=== PATIENT | female | born 1965 | race Caucasian/White ===

== ENCOUNTER 2023-03-04 08:58 | Outpatient (CLI) | payer BC, SELFPAY ==
[2023-03-04 09:28] LABS: Hematocrit 38.1 % (37.0-47.0); Hemoglobin 12.8 g/dL (12.0-15.0)
== END 2023-03-04 08:59 | disposition home or self-care (01) ==
LOC: ANHSURGERY 09:03
PROVIDERS: PCP Internal Medicine; Visit Provider Student in an Organized Health Care Education/Training Program
DX: N95.0 Postmenopausal bleeding (principal)
CPT/HCPCS: 36415; 85014; 85018

== ENCOUNTER 2023-03-07 01:45 | Day surgery (SDC) | payer BC, SELFPAY ==
[2023-03-01 14:00] VITALS: BMI 21.3
--- NOTE | 2023-03-01 14:13 | PC.NURSE ---
PRE-OP INSTRUCTIONS, PLEASE READ CAREFULLY Report to the Outpatient Waiting Room, entrance under the green pavilion located off [facility], at time _1200_ on date _03/07/23_. Planned Procedure Time: _2PM_. Time changes happen often and if your time is changed the preop area will call you the afternoon before. - You and your visitor will be asked to self-screen and do not enter if you have any COVID symptoms. - A mask is optional within the hospital at this time. Patients may have clear liquids (water, carbonated beverages, clear teas, apple juice) until 3 hours prior to surgery with a maximum of 20 ounces. - No food from midnight until time of surgery - Infants may have breast milk until 4 hours before surgery, formula 6 hours prior to surgery. - Children will be allowed to drink immediately following surgery. If applicable, please bring a bottle or sippy cup to assist with drinking. Juice, water, soda, and popsicles are readily available. For infants on formula, please bring formula the day of surgery. Pacifiers are allowed. Take the following medications with a SIP of water the morning of surgery: _NONE__ DO NOT STOP ANY OF YOUR OTHER PRESCRIPTION MEDICATIONS PRIOR TO SURGERY ?EXCEPT THE FOLLOWING Medications to discontinue per ANESTHESIA - _MULTIVITAMIN/SUPPLEMENTS 3 DAYS PRIOR TO SURGERY, Date to take last dose 03/03/23_ Please no make-up, nail dominican, hairspray, perfume, deodorant, or body powder the day of surgery. No jewelry (including any body piercings) or valuables the day of surgery, leave them at home. Please take a shower or bath the night before, or the morning of, surgery with an antibacterial soap. Wear comfortable, loose fitting clothing. Children are encouraged to wear pajamas. - Jewelry must be removed prior to entering the operating room. Rings and piercings that are not removed may be cut off. - The hospital will not accept responsibility for valuables. - Please leave all valuables, including medications, at home the day of surgery. If you are going home after surgery, a licensed septic pump truck driver must drive you home. - NO public transportation without another adult if you receive anesthesia. - We recommend that an adult stay with you for 24 hours following discharge. - We also recommend that you do not drive, make important decision, drink alcoholic beverages, or take any drugs that were not prescribed by your health care provider for at least 24 hours after your discharge time. For Pediatric surgeries, we recommend two adults accompany the child home. Follow any additional instructions given to you from your surgeon. If you or anyone in your household have experienced Covid symptoms in the past week, please notify your surgeon or the nurse liaison at the phone number below for possible testing. Telephone instructions given to and asked if any additional questions and then verbalized understanding. Patient advised to call surgeon office or pre surgery nurse liaison [phone] if any additional questions.
--- NOTE | 2023-03-07 08:15 | PM.IMHP ---
H&P: HPI History of Present Illness Date/Time: 03/07/23 08:15 Chief Complaint: postmenopausal bleeding Narrative: 57-year-old female who presents for hysteroscopy D&C for postmenopausal bleeding. Patient has had persistent light postmenopausal spotting. Transvaginal ultrasound showed mildly thickened endometrium. Patient currently on hormone replacement therapy. Recommended tissue sampling to rule out malignancy. Review of Systems Cardiovascular: Cardiovascular: Denies chest pain, Denies leg edema, Denies palpitations, Denies dyspnea and Denies dyspnea on exertion Respiratory: Respiratory: Denies cough, Denies dyspnea and Denies dyspnea on exertion Gastrointestinal: Gastrointestinal: Denies abdominal pain, Denies constipation, Denies diarrhea, Denies nausea and Denies vomiting Genitourinary: Genitourinary: Denies hematuria, Denies urinary frequency, Denies dysuria, Denies pelvic pain, Denies urinary incontinence and Denies vaginal discharge Neurologic: Reports system reviewed and no additional complaints, except as documented Psychiatric: Psychiatric: Reports no additional psychiatric complaints Endocrine: Endocrine: Denies palpitations PMFSH Past Medical History Medical History (Updated 02/18/23 @ 09:32 by Veronica Worthington CMA) Screening for breast cancer Vaginal discharge Surgical History Surgical History H/O breast implant (~1997) H/O hemorrhoidectomy (~2000) History of colposcopy (06/15/15) History of gynecological procedure (~2009) 2010 fallion tubes removed and right ovary History of orthopedic surgery right shoulder History of orthopedic surgery left elbow surgery Family History Family History Grandparent Diabetes mellitus maternal grandmother Mother Hypertension Social History Social History (Updated 02/18/23 @ 09:35 by Veronica Worthington CMA) Smoking packs per day: 0.5 Smoking cigarettes per day: 10.0 Years smoked: 20 Smoking pack-years: 10.00 Smoking status: Former smoker Tobacco type: cigarettes Second hand tobacco smoke exposure: No Smoking end date: 07/08/08 Alcohol intake: current Substance use: never Substance use type: does not use Lack of Transportation: No Lack of Food: Never True Current Housing: I Have Housing Concerned About Future Housing: No Difficulty Paying Gas/Electric Bills: No Difficulty Paying for Meds: No Currently Unemployed: No Education: Associate Degree Difficulty w/ Childcare or Family Care: No Living arrangements: other Additional living arrangements comments: LIVES WITH SIGNIFICANT OTHER Occupation/Education: occupation Gender identity (if verbalized by the patient): Female Sexual Orientation (if Verbalized by the Patient): Straight or Heterosexual Spiritual care concerns: No Meds Home Medications and Allergies Home Medications Medication Instructions Recorded Confirmed Type estradiol 0.01% (0.1 mg/gram) 2 g vaginal DAILY 10/18/22 03/01/23 History vaginal cream progesterone micronized 100 mg 300 mg PO QAM 02/18/23 03/01/23 History capsule Fish Oil 1 tab-cap DAILY 03/01/23 03/01/23 History multivitamin 1 tablet PO DAILY 03/01/23 03/01/23 History Allergies Allergy/AdvReac Type Severity Reaction Status Date / Time No Known Allergies Allergy Verified 03/01/23 13:50 Exam Const: General: no acute distress Eyes: EOM: EOMs intact bilaterally Neck: Neck: supple Thyroid: thyroid normal Chest: Breast/axilla inspection: normal inspection of the breasts Breast/axilla palpation: normal palpation of the breasts, normal palpation of the axillae and no axillary lymphadenopathy Resp: Effort & Inspection: normal respiratory effort Auscultation: clear to auscultation bilaterally Cardio: Rate: regular rate Rhythm: regular rhythm GI: Inspection: non-distended GI Palp:
--- NOTE | 2023-03-07 08:17 | WPDHPUPDATE1 ---
History and Physical Update Update Date/Time: 03/07/23 08:17 History and Physical has been reviewed, including an updated exam of the patient. There are NO changes in the patient's condition. Risks, benefits, and alternatives have been discussed and questions answered. Patient agrees to proceed with procedure.
--- NOTE | 2023-03-07 09:09 | WPDANESEPPF ---
Anes - Initial Pre Proc Eval Procedure: Operation Date: 03/07/23 14:00 Proposed Procedures p Hysteroscopy Dilation and Curettage - Fabricio Prince MD Date/Time: 03/07/23 09:09 Surgeon: Fabricio Prince MD Pre Op Diagnosis: postmenopausal bleeding Patient Data Age: 57 Gender: F Height: 1.7 m Weight: 61.81 kg Allergies Allergy/AdvReac Type Severity Reaction Status Date / Time No Known Allergies Allergy Verified 03/07/23 12:04 Home Medications Medication Instructions Recorded Confirmed Type estradiol 0.01% (0.1 mg/gram) 2 g vaginal DAILY 10/18/22 03/07/23 History vaginal cream progesterone micronized 100 mg 300 mg PO QAM 02/18/23 03/07/23 History capsule Fish Oil 1 tab-cap DAILY 03/01/23 03/07/23 History multivitamin 1 tablet PO DAILY 03/01/23 03/07/23 History Patient hx anesthesia problems: none Family hx anesthesia problems: none Results Review: All pre-operative results and documents have been reviewed as part of the pre-operative evaluation. [facility] Past Medical History Medical History (Updated 02/18/23 @ 09:32 by Veronica Worthington CMA) Screening for breast cancer Vaginal discharge Surgical History Surgical History H/O breast implant (~1997) H/O hemorrhoidectomy (~2000) History of colposcopy (06/15/15) History of gynecological procedure (~2009) 2010 fallion tubes removed and right ovary History of orthopedic surgery right shoulder History of orthopedic surgery left elbow surgery Family History Family History Grandparent Diabetes mellitus maternal grandmother Mother Hypertension Social History Social History (Updated 02/18/23 @ 09:35 by Veronica Worthington CMA) Smoking packs per day: 0.5 Smoking cigarettes per day: 10.0 Years smoked: 20 Smoking pack-years: 10.00 Smoking status: Former smoker Tobacco type: cigarettes Second hand tobacco smoke exposure: No Smoking end date: 07/08/08 Alcohol intake: current Substance use: never Substance use type: does not use Lack of Transportation: No Lack of Food: Never True Current Housing: I Have Housing Concerned About Future Housing: No Difficulty Paying Gas/Electric Bills: No Difficulty Paying for Meds: No Currently Unemployed: No Education: Associate Degree Difficulty w/ Childcare or Family Care: No Living arrangements: other Additional living arrangements comments: LIVES WITH SIGNIFICANT OTHER Occupation/Education: occupation Gender identity (if verbalized by the patient): Female Sexual Orientation (if Verbalized by the Patient): Straight or Heterosexual Spiritual care concerns: No Anes - Eval Final PreProcedure Day of Procedure 03/07/23 09:09 Patient weight: normal Heart: regular rate and rhythm Lungs: clear to auscultation and normal air movement Airway: Mallampati scale class II Neurological: alert and oriented Last oral intake: >/= 8 hours ASA classification: II Emergent: no Anesthetic plan: proceed Anesthesia type and monitoring: general GIVS and standard monitoring Results Review: All pre-operative results and documents have been reviewed as part of the pre-operative evaluation. Informed Consent: The patient's anesthetic plan and its attendant risks and benefits were discussed with the patient/family/POA. Questions were solicited and answers provided to the satisfaction of the patient/family/POA.
[2023-03-07 12:02] VITALS: BP 157/74; PULSE 82; RESP 20; TEMP 36.7; O2SAT 100
[2023-03-07] MEDS: ACETAMINOPHEN 500 MG TABLET 1000 MG PO (12:13)
[2023-03-07] MEDS: LACTATED RINGERS 1,000 ML 30 ML IV CONT ×2 (12:20→14:11)
[2023-03-07 13:57] VITALS: BP 115/63; PULSE 72; RESP 16; O2SAT 100
--- NOTE | 2023-03-07 13:59 | W.PM.PROC2 ---
Procedure Note - Detailed Date of Procedure 03/07/23 Pre-op Diagnosis postmenopausal bleeding Post-op Diagnosis Same Procedure Performed hysteroscopy dilation & curettage Surgeon Fabricio Prince MD Anesthesia General Indications abnormal uterine bleeding Findings normal appearing intrauterine cavity. Normal tubal ostia bilaterally Description of Procedure Keyla Bellamy presents for the above procedure for AUB. She was counseled as to the indications, risks, benefits, and alternatives to surgery, with the risks including bleeding, infection, damage to surrounding organs, VTE, and complications of anesthesia. Her verbal and written consent was obtained. PROCEDURE: The patient was taken to the OR and general anesthesia induced. She was prepped and draped in Joby stirrups with support of the back and bilateral lower extremities. I/O catheterization performed of the bladder. The above findings were noted. I A single tooth tenaculum was placed on the anterior lip of the cervix. The cervix was dilated with sequential Mimi dilators. Hysteroscopy, using a normal saline medium, was performed and showed the above findings. Sharp uterine curettage was then performed and tissue placed on Telfa. The tenaculum was removed and hemostasis was observed. The patient tolerated the procedure well. Sponge, lap, and needle counts were correct. The patient was taken to the recovery room in stable condition. Estimated Blood Loss 5 Urine Output 25 Drains No Packing No Pathology Yes (endometrial curettings ) Complications No immediate complications Condition Stable Disposition PACU [facility] Billing Surgery - Charge Forward: Surgery Billing
[2023-03-07] MEDS: fentaNYL CITRATE INJ (*CRX) 100 MCG/2 ML VIAL 25 MCG IV PUSH ×4 (14:11→14:48)
[2023-03-07 14:15] VITALS: BP 117/63; PULSE 60; RESP 15; O2SAT 98
[2023-03-07 14:30] VITALS: BP 122/67; PULSE 61; RESP 16; O2SAT 100
[2023-03-07 14:45] VITALS: BP 129/63; PULSE 66; RESP 16; O2SAT 100
[2023-03-07] MEDS: oxyCODONE HCL (*CRX) 5 MG TAB IR PO (15:01)
[2023-03-07 15:22] VITALS: BP 133/74; PULSE 63; RESP 16; O2SAT 100
== END 2023-03-07 15:28 | disposition home or self-care (01) ==
PROVIDERS: PCP Internal Medicine; Visit Provider Student in an Organized Health Care Education/Training Program
PROC: 0U5B8ZZ Destruction of Endometrium, Via Natural or Artificial Opening Endoscopic (ICD-10-PCS; CPT 58563; principal; 2023-03-07 14:00)
DX: N95.0 Postmenopausal bleeding (principal); Z87.891 Personal history of nicotine dependence; Z79.890 Hormone replacement therapy
CPT/HCPCS: 58558; 88305; A9270; J2250; J2704; J3010; J7120